=== PATIENT | female | born 1935 | race Caucasian/White ===

== ENCOUNTER → 2018-12-10 | Outpatient (CLI) | payer MEDICARE, OTHER ==
[~2018-12-10] MED LIST: BP MED; HYDROCHLOROTHIA25 MG PO; NEXIUM40 MG PO; SYNTHROID; SYNTHROID25 MCG PO; VITAMIN D22000 UNIT PO
--- NOTE | 2018-12-10 12:18 | Diagnostic Imaging Report ---
EXAM: Renal Ultrasound INDICATION: Right hydronephrosis. COMPARISON: Multiple prior images and reports from studies including renal ultrasounds from 06/2007, 08/2008, and 10/[address] abdomen/pelvis from 08/2010 and 09/2016 were not available for review at the time of dictation. TECHNIQUE: Transverse and longitudinal images of the kidneys and bladder were obtained. FINDINGS: Right Kidney: Length: Measures 11.7 x 4.7 x 4.5 cm Appearance: Normal echogenicity. Collecting system: Moderate to severe right hydronephrosis Stones: None Cyst/Mass: None Left Kidney: Length: Measures 9.6 x 4.5 x 4.3 cm Appearance: Normal echogenicity. 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 Bladder: Bilateral ureteral jets are not visualized. The bladder is decompressed, with a volume of 10.2 cc. IMPRESSION: Moderate to severe right hydronephrosis. Prior studies are not available for review at the time of this dictation. If prior comparisons are available, that would be helpful. Otherwise, CT abdomen/pelvis may be considered for further evaluation. Signed by: Dr. Vega Triplett MD on 12/10/2018 12:14 PM
== END ==
LOC: US 10:30
DX: N13.30 Unspecified hydronephrosis (principal)
CPT/HCPCS: 76770

== ENCOUNTER 2022-02-10 17:27 | Emergency (ER) | payer MEDICARE, OTHER ==
[~2022-02-10] VITALS: Ht 167.6 cm; Wt 65.8 kg
[2022-02-10] MEDS ORDERED: HYDROCODONE/APAP 5MG-325MG TAB PO ONE (18:15)
[2022-02-10] MEDS ORDERED: METOPROLOL TARTRATE INJ 1 MG/ML VIAL IV ONE (19:15)
[2022-02-10 19:24] LABS: BASOPHILS % 0.3 % (0.0-1.0); EOSINOPHILS # (AUTO) 0.2 (0.0-0.4); EOSINOPHILS % 2.7 % (0.0-6.0); HEMATOCRIT 38.7 % (34.2-44.1); HEMOGLOBIN 12.2 g/dL (12.0-16.0); LYMPHOCYTES # (AUTO) 1.9 (1.0-3.2); LYMPHOCYTES % 31.6 % (18.0-39.1); MEAN CORPUSCULAR HEMOGLOBIN 29.3 pg (28-32); MEAN CORPUSCULAR HGB CONC 31.5 g/dL (31-35); MEAN CORPUSCULAR VOLUME 92.8 fL (81-99); MONOCYTES # (AUTO) 0.5 (0.2-0.8); MONOCYTES % 8.6 % (4.4-11.3); NEUTROPHILS # (AUTO) 3.3 (2.1-6.9); NEUTROPHILS % 56.5 % (38.7-80.0); PLATELET COUNT 216 x10e3/uL (140-360); RED BLOOD COUNT 4.17 x10e6/uL (3.6-5.1); RED CELL DISTRIBUTION WIDTH 12.8 % (11.7-14.4)
[2022-02-10] MEDS ORDERED: SODIUM CHLORIDE 0.9% 1000ML 1,000 ML IV ONE (19:30)
[2022-02-10] MEDS ORDERED: SODIUM CHLORIDE 0.9% 1000ML 1,000 ML ONE (19:37)
[2022-02-10 19:41] LABS: ALBUMIN/GLOBULIN RATIO 0.8 (0.8-2.0); CALCIUM 8.9 mg/dL (8.4-10.2); CREATININE, SERUM 0.83 mg/dL (0.57-1.11)
[2022-02-10 19:48] LABS: CREATINE KINASE MB 0.8 ng/mL (0-5.0)
[2022-02-10 20:13] LABS: CLARITY,URINE CLEAR (CLEAR); COLOR,URINE YELLOW (YELLOW); KETONES,URINE NEGATIVE (NEGATIVE); LEUKOCYTE ESTERASE ,URINE NEGATIVE (NEGATIVE); NITRITE,URINE NEGATIVE (NEGATIVE); PROTEIN,URINE DIPSTICK NEGATIVE (NEGATIVE); URINE UROBILINOGEN 0.2 mg/dL (0.2 - 1)
[2022-02-10 20:30] LABS: BACTERIA,URINE FEW /HPF; EPITHELIAL CELLS,URINE FEW /LPF; RBC,URINE 0-5 /HPF (0-5); WBC,URINE (MAN) 0-5 /HPF (0-5)
[2022-02-10 21:15] VITALS: BP 114/73
== END 2022-02-10 21:18 | disposition home or self-care (01) ==
LOC: ER 17:34
DX: M54.50 Low back pain, unspecified (principal); F03.90 Unspecified dementia, unspecified severity, without behavioral disturbance, psychotic disturbance, mood disturbance, and anxiety; Z88.0 Allergy status to penicillin; Z91.018 Allergy to other foods
CPT/HCPCS: 36415; 74176; 80053; 81001; 82550; 82553; 84484; 85025; 93005; 99284; J7030